=== PATIENT | female | born 1995 ===

== ENCOUNTER 2018-12-04 15:01 | Emergency (ER) | payer MEDICAID, OTHER ==
[2018-12-04 15:21] VITALS: RESP 18; TEMP 98
--- NOTE | 2018-12-04 15:38 | ED PDOC ---
Arrival/HPI - General Historian: Family - History of Present Illness Narrative History of Present Illness (Text): 12/04/18 15:35 Patient is a 23yo F with no PMH presenting to ED with seizure like activity and neurological deficits. Most of history was obtained from family members at bedside. They report patient complained of shaking and loss of sensation of hands and mouth this morning with an abrupt onset. They noticed the pt going cross eyed. They report prior history of this 2 weeks ago when she visited [facility] after having nightmares and similar symptoms and was discharged. She also complained of palpitations. She continues to complain of a heart squeezing sensation, numbness, and weakness. She denies any loss of consciousness. She is able to follow commands and answer questions at this time. She denies any recent stressful events, ingesting any drugs, or taking any medications today. She denies anxiety at this time. They report history of anxiety and seizure like activity in patient's father. They also report patient was recently "disowned" by family and moved in with aunt. <Cj Landis - Last Filed: 12/04/18 17:13> <Baldev Gibson - Last Filed: 12/04/18 18:45> - General Chief Complaint: Seizure Time Seen by Provider: 12/04/18 15:30 Family/Social History Family/Social History: Other Narrative Family History (Free Text): 12/04/18 15:41 father - seizures, anxiety <Cj Landis - Last Filed: 12/04/18 17:13> Allergies/Home Meds <Cj Landis - Last Filed: 12/04/18 17:13> <Baldev Gibson - Last Filed: 12/04/18 18:45> Allergies/Adverse Reactions: Allergies No Known Allergies Allergy (Verified 12/04/18 15:30) Review of Systems - Review of Systems Constitutional: absent: Fatigue, Fevers Eyes: Vision Changes Respiratory: absent: SOB Cardiovascular: Palpitations Gastrointestinal: absent: Abdominal Pain, Diarrhea, Nausea, Vomiting Genitourinary Female: absent: Dysuria Musculoskeletal: absent: Arthralgias Neurological: Focal Weakness, Seizure <Cj Landis - Last Filed: 12/04/18 17:13> Physical Exam Vital Signs Temp Pulse Resp BP Pulse Ox 12/04/18 15:20 98.0 F 118 H 18 135/84 100 - Systems Exam Head: Present: Atraumatic, Normocephalic Pupils: Present: PERRL Extroacular Muscles: Present: EOMI, Other (intentional intermittent eye adduction) Conjunctiva: Present: Normal Mouth: Present: Moist Mucous Membranes Neck: Present: Normal Range of Motion Respiratory/Chest: Present: Clear to Auscultation. No: Good Air Exchange, Respiratory Distress, Wheezes Cardiovascular: Present: Tachycardic Abdomen: Present: Normal Bowel Sounds. No: Tenderness, Distention Upper Extremity: Present: Normal Inspection, Normal ROM, Neurovascularly Intact, Norm 2-Pt Discrimination Lower Extremity: Present: Normal Inspection, Neurovascularly Intact Neurological: Present: GCS=15, CN II-XII Intact, Motor Func Grossly Intact, Normal Sensory Function, Normal 2Pt Descrimination Skin: Present: Normal Color Psychiatric: Present: Anxious, Agitated <Cj Landis - Last Filed: 12/04/18 17:13> Vital Signs Temp Pulse Resp BP Pulse Ox 12/04/18 15:20 98.0 F 118 H 18 135/84 100 <Baldev Gibson - Last Filed: 12/04/18 18:45> Medical Decision Making ED Course and Treatment: 12/04/18 17:04 Patient is no longer suffering from neurological symptoms and is feeling calmer. She is medically cleared for discharge. - Medication Orders Current Medication Orders: Alprazolam (Xanax) 0.5 mg PO STAT STA; Protocol Stop: 12/04/18 15:34 <Cj Landis - Last Filed: 12/04/18 17:13> ED Course and Treatment: 12/04/18 18:38 Patient evaluated by PES exhibitions and collections manager and deemed cleared for clearance from a psychiatric standpoint. She is stable for discharge. - Lab Interpretations Lab Results: Total Bilirubin 0.2 mg/dL (0.2-1.3) 12/04/18 16:05 AST 24 U/L (14-36) 12/04/18 16:05 ALT 21 U/L (7-56) 12/04/18 16:05 Alkaline Phosphatase 88 U/L (38-126) 12/04/18 16:05 Total Protein 7.9 g/dL (5.8-8.3) 12/04/18 16:05 Albumin 4.3 g/dL (3.0-4.8) 12/04/18 16:05 Globulin 3.6 gm/dL 12/04/18 16:05 Albumin/Globulin Ratio 1.2 (1.1-1.8) 12/04/18 16:05 Urine HCG, Qual Negative (NEGATIVE) 12/04/18 16:05 Urine HCG, Qual Negative (NEGATIVE) 12/04/18 16:05 - RAD Interpretation Radiology Orders: 12/04/18 15:51 CHEST TWO VIEWS (PA/LAT) [RAD] Stat - Medication Orders Current Medication Orders: Sodium Chloride (Sodium Chloride 0.9%) 1,000 mls @ 100 mls/hr IV .Q10H SUHA Last Admin: 12/04/18 16:15 Dose: 100 mls/hr eMAR Start Stop Document 12/04/18 16:15 GMD (Rec: 12/04/18 16:15 GMD [facility] [place]-[id number]) Intravenous Solution Start Date 12/04/18 Start Time 16:15 Discontinued Medications Alprazolam (Xanax) 0.5 mg PO STAT STA; Protocol Stop: 12/04/18 15:34 Last Admin: 12/04/18 16:15 Dose: 0.5 mg <BoskylieBaldev - Last Filed: 12/04/18 18:45> Disposition/Present on Arrival - Present on Arrival Any Indicators Present on Arrival: No - Disposition Have Diagnosis and Disposition been Completed?: Yes Disposition Time: 17:06 <Cj Landis - Last Filed: 12/04/18 17:13> - Present on Arrival Any Indicators Present on Arrival: No History of DVT/PE: No History of Uncontrolled Diabetes: No Urinary Catheter: No History of Decub. Ulcer: No - Disposition Have Diagnosis and Disposition been Completed?: Yes Patient Plan: Discharge <BosleonieemBaldev - Last Filed: 12/04/18 18:45> - Disposition Diagnosis: Anxiety, Conversion disorder Disposition: HOME/ ROUTINE Patient Problems: Current Active Problems Problem Status Onset Anxiety Acute Conversion disorder Acute Condition: IMPROVED Discharge Instructions (ExitCare): Conversion Disorder, Anxiety, Adult (DC) Print Language: GHANAIAN Additional Instructions: Please follow up with your primary care physician upon discharge. If you do not have a primary care physician, please make an appointment at the [facility] to establish care. It is recommended to utilize exercises to relieve stress, such as deep breathing and meditation. If symptoms worsen, return to the emergency department. Referrals: [facility] [Outside] - Follow up with primary Forms: [employer] (German), SCHOOL NOTE, WORK NOTE
[2018-12-04 15:44] VITALS: BMI 21.4
[2018-12-04] MEDS ORDERED: Sodium Chloride 0.9% 1,000 ML IV SCH (16:15)
[2018-12-04 16:20] LABS: BASO # 0.05 K/mm3 (0.0-2.0); BASO % 0.4 % (0.0-3.0); EOS # 0.4 (0.0-0.7); EOS % 3.8 % (1.5-5.0); HEMOGLOBIN 13.4 g/dL (12.0-16.0); LYMPH # 2.3 (1.2-3.4); LYMPH % 20.5 % (22.0-35.0); MEAN CELL VOLUME 83.3 fl (80.0-105.0); MEAN CORPUSCULAR HGB CONC 32.4 g/dl (31.0-37.0); MEAN PLATELET VOLUME 9.6 fl (7.0-11.0); MONO # 1.4 (0.1-0.6); MONO % 12.8 % (1.0-6.0); RBC 4.96 10^6/uL (3.5-6.1); RED CELL DISTRIBUTION WIDTH 13.6 % (11.5-14.5); WHITE BLOOD COUNT 11.2 10^3/uL (4.5-11.0)
[2018-12-04 16:29] LABS: ALB/GLOB RATIO 1.2 (1.1-1.8); ALBUMIN 4.3 g/dL (3.0-4.8); ALT/SGPT 21 U/L (7-56); AST/SGOT 24 U/L (14-36); BLOOD UREA NITROGEN 12 mg/dL (7-21); CALCIUM 9.1 mg/dL (8.4-10.5); GFR NON-AFRICAN AMERICAN > 60
[2018-12-04 16:46] LABS: FREE T4 1.13 ng/dL (0.78-2.19)
[2018-12-04] MEDS ORDERED: Iohexol 350 MG/100 ML VIAL ONE (17:36)
--- NOTE | 2018-12-04 17:54 | CARD ---
APPROVED REPORT Date of service: 12/04/2018 EKG Measurement Heart [id number] <Conclusion> Poor data quality, interpretation may be adversely affected Sinus tachycardia Otherwise normal ECG
[2018-12-04 17:59] LABS: BARBITURATES, UR NEGATIVE (NEGATIVE); BENZODIAZEPINES, UR NEGATIVE (NEGATIVE); OPIATES, UR NEGATIVE (NEGATIVE); PHENCYCLIDINE, UR NEGATIVE (NEGATIVE)
[2018-12-04 18:46] VITALS: BP 142/68; PULSE 102; O2SAT 98
== END 2018-12-04 18:49 | disposition home or self-care (01) ==
LOC: MERGE 15:01 → ED 15:01
DX: F41.9 Anxiety disorder, unspecified (principal); F44.9 Dissociative and conversion disorder, unspecified
CPT/HCPCS: 80053; 81025; 84439; 84443; 84703; 85025; 93005; 99285; G0480; J7030; Q9967

== ENCOUNTER 2018-12-11 11:10 | Emergency (ER) | payer MEDICAID, OTHER ==
[2018-12-11 11:11] VITALS: BMI 21.4
[2018-12-11 11:55] VITALS: TEMP 98.2
--- NOTE | 2018-12-11 12:23 | ED PDOC ---
Arrival/HPI - General Chief Complaint: Upper Extremity Problem/Injury Time Seen by Provider: 12/11/18 11:55 Historian: Patient - History of Present Illness Narrative History of Present Illness (Text): 12/11/18 12:20 23 year old F with no significant pmh presents with chief complaint of left upper arm that she noticed this morning. Patient denies any recent trauma or falls. Patient have no past medical history of bleeding disorders. Denies any other bruising. Patient denies any fevers, chills, headache, dizziness, chest pain, shortness of breath, dyspnea on exertion, cough, abdominal pain, nausea, vomiting, diarrhea, back pain, neck pain, or any other complaint. 12/11/18 14:55 Time/Duration: 1-3 hours Symptom Onset: Sudden Symptom Course: Unchanged Activities at Onset: Light Context: Home Past Medical History - Provider Review Nursing Documentation Reviewed: Yes - Infectious Disease Hx of Infectious Diseases: None - Cardiac Hx Cardiac Disorders: Yes Hx Hypertension: No Other/Comment: "irregular heart rhythm" - Pulmonary Hx Tuberculosis: No - Neurological HX Cerebrovascular Accident: No Hx Seizures: No - Hematological/Oncological Hx Cancer: No - Genitourinary/Gynecological Hx Sexually Transmitted Diseases: No - Psychiatric Hx Substance Use: No - Anesthesia Hx Anesthesia: No - Suicidal Assessment Feels Threatened In Home Enviroment: No Family/Social History - Physician Review Nursing Documentation Reviewed: Yes Family/Social History: Unknown Family HX Smoking Status: Never Smoked Hx Alcohol Use: No Hx Substance Use: No Allergies/Home Meds Allergies/Adverse Reactions: Allergies No Known Allergies Allergy (Verified 12/06/18 14:32) Review of Systems - Review of Systems Constitutional: absent: Fevers Respiratory: absent: SOB, Cough Cardiovascular: absent: Chest Pain Gastrointestinal: absent: Abdominal Pain, Diarrhea, Nausea, Vomiting Musculoskeletal: Arthralgias (left upper arm). absent: Joint Swelling Neurological: absent: Headache, Dizziness Hemo/Lymphatic: absent: Easy Bleeding, Easy Bruising Physical Exam Vital Signs Reviewed: Yes Vital Signs Temp Pulse Resp BP Pulse Ox 12/11/18 11:50 98.2 F 93 H 17 107/72 97 Temperature: Afebrile Blood Pressure: Normal Pulse: Regular Respiratory Rate: Normal Appearance: Positive for: Well-Appearing, Non-Toxic, Comfortable Pain Distress: None Mental Status: Positive for: Alert and Oriented X 3 - Systems Exam Head: Present: Atraumatic, Normocephalic Pupils: Present: PERRL Extroacular Muscles: Present: EOMI Conjunctiva: Present: Normal Mouth: Present: Moist Mucous Membranes Neck: Present: Normal Range of Motion Respiratory/Chest: Present: Clear to Auscultation, Good Air Exchange. No: Respiratory Distress, Accessory Muscle Use Cardiovascular: Present: Regular Rate and Rhythm, Normal S1, S2. No: Murmurs Abdomen: No: Tenderness, Distention, Peritoneal Signs Back: Present: Normal Inspection Upper Extremity: Present: Normal ROM, NORMAL PULSES, Tenderness (left upper arm), Capillary Refill < 2s, Other (3 in linear bruising to anterior left upper arm). No: Cyanosis, Edema Lower Extremity: Present: Normal Inspection. No: Edema Neurological: Present: GCS=15, CN II-XII Intact, Speech Normal Skin: Present: Warm, Dry, Normal Color. No: Rashes Psychiatric: Present: Alert, Oriented x 3, Normal Insight, Normal Concentration Medical Decision Making ED Course and Treatment: 12/11/18 12:20 Impression: 23 year old F presents with chief complaint of left upper arm bruising since this morning. Patient denies any recent trauma or falls. Patient have no past medical history of bleeding disorders. No bruising anywhere else on patient's body Plan: -- X Ray Left humerus -- Reassess and disposition Prior Visits: Notes and results from previous visits were reviewed. Patient was last seen in the emergency department on Progress Notes: 12/11/18 14:05 Hymerus X Ray -- Normal radiographs of left humerus Patient aware of need to follow-up with PMD for further evaluation of bruising - RAD Interpretation Radiology Orders: 12/11/18 12:05 HUMERUS LEFT [RAD] Stat - Scribe Statement The provider has reviewed the documentation as recorded by the Gayathri Lazcano All medical record entries made by the Scribe were at my direction and personally dictated by me. I have reviewed the chart and agree that the record accurately reflects my personal performance of the history, physical exam, medical decision making, and the department course for this patient. I have also personally directed, reviewed, and agree with the discharge instructions and disposition. Disposition/Present on Arrival - Present on Arrival Any Indicators Present on Arrival: No History of DVT/PE: No History of Uncontrolled Diabetes: No Urinary Catheter: No History of Decub. Ulcer: No History Surgical Site Infection Following: None - Disposition Have Diagnosis and Disposition been Completed?: Yes Diagnosis: Arm bruise Disposition: HOME/ ROUTINE Disposition Time: 14:05 Patient Plan: Discharge Patient Problems: Current Active Problems Problem Status Onset Arm bruise Acute Condition: GOOD Discharge Instructions (ExitCare): Contusion (DC) Additional Instructions: Follow-up with PMD within 2 days. Return to ED if condition worsens. Tylenol for pain. Forms: [employer] (Maltese)
[2018-12-11 13:09] VITALS: BP 105/72; PULSE 89; RESP 18; O2SAT 100
--- NOTE | 2018-12-11 14:19 | RAD ---
PROCEDURE: Radiographs of the left humerus. HISTORY: bruising to L upper arm COMPARISON: None. TECHNIQUE: 2 views obtained. FINDINGS: BONES: Normal. No fracture or focal lesion. SOFT TISSUES: Normal. OTHER FINDINGS: None. IMPRESSION: Normal radiographs of left humerus.
== END 2018-12-11 14:10 | disposition home or self-care (01) ==
LOC: ED 11:10
DX: S40.022A Contusion of left upper arm, initial encounter (principal); X58.XXXA Exposure to other specified factors, initial encounter

== ENCOUNTER 2019-01-02 13:50 | Emergency (ER) | payer MEDICAID ==
[2019-01-02 14:11] VITALS: RESP 18; TEMP 97.8
--- NOTE | 2019-01-02 14:14 | ED PDOC ---
Arrival/HPI <Baldev Gibson - Last Filed: 01/02/19 15:10> - General Historian: Patient - History of Present Illness Narrative History of Present Illness (Text): 01/02/19 14:30 Patient is a 23 yo who denies PMH who presents with bloody vomiting. Patient states that 2 days ago, she was sitting at home when all of a sudden she vomited dark red blood. She states that this has happened a total of 6 times, with the most recent being this morning. She says she has been able to eat soup and drink sherwin eric for the last 2 days. She denies any sick contacts. She also endorses blood in her urine. She denies dysuria. She reports her last menses was "last month" and it is regular. She denies alcohol and drug use. She denies fevers, chills, chest pain, palpitations, abdominal pain, diarrhea. She denies having a PMD. Of note, patient has been to all 3 [facility] EDs in the past with similar complaints. Her most recent visit, she was diagnosed with anxiety and conversion disorder. 01/02/19 14:35 Time/Duration: < week Symptom Onset: Sudden Symptom Course: Unchanged Activities at Onset: Rest <Cris Santo - Last Filed: 01/02/19 15:46> - General Chief Complaint: GI Problem Time Seen by Provider: 01/02/19 14:14 Past Medical History - Infectious Disease Hx of Infectious Diseases: None - Tetanus Immunization Tetanus Immunization: Unknown - Reproductive Menopause: No - Cardiac Hx Cardiac Disorders: Yes Hx Hypertension: No Other/Comment: "irregular heart rhythm" - Pulmonary Hx Tuberculosis: No - Neurological HX Cerebrovascular Accident: No Hx Seizures: No - Hematological/Oncological Hx Cancer: No - Genitourinary/Gynecological Hx Sexually Transmitted Diseases: No - Psychiatric Hx Substance Use: No - Anesthesia Hx Anesthesia: No - Suicidal Assessment Feels Threatened In Home Enviroment: No <Cris Santo - Last Filed: 01/02/19 15:46> Family/Social History Family/Social History: Unknown Family HX Narrative Family History (Free Text): 01/02/19 14:34 lives with cousin Smoking Status: Never Smoked Hx Alcohol Use: No Hx Substance Use: No <Cris Santo - Last Filed: 01/02/19 15:46> Allergies/Home Meds <Baldev Gibson - Last Filed: 01/02/19 15:10> <Cris Santo - Last Filed: 01/02/19 15:46> Allergies/Adverse Reactions: Allergies No Known Allergies Allergy (Verified 12/06/18 14:32) Review of Systems - Review of Systems Constitutional: absent: Weight Change, Fevers Respiratory: absent: SOB, Cough Cardiovascular: absent: Chest Pain, Palpitations Gastrointestinal: Vomiting, Hematemesis. absent: Abdominal Pain, Constipation, Diarrhea, Nausea, Hematochezia Genitourinary Female: Hematuria. absent: Dysuria Musculoskeletal: absent: Arthralgias, Myalgias Skin: absent: Rash, Pruritis, Skin Lesions Neurological: absent: Headache, Dizziness Endocrine: absent: Diaphoresis, Polyuria Hemo/Lymphatic: absent: Adenopathy <Cris Santo - Last Filed: 01/02/19 15:46> Physical Exam Vital Signs Temp Pulse Resp BP Pulse Ox 01/02/19 14:06 97.8 F 89 18 119/68 99 <Baldev Gibson - Last Filed: 01/02/19 15:10> Vital Signs Reviewed: Yes Vital Signs Temp Pulse Resp BP Pulse Ox 01/02/19 14:06 97.8 F 89 18 119/68 99 Temperature: Afebrile Blood Pressure: Normal Pulse: Regular Respiratory Rate: Normal Appearance: Positive for: Well-Appearing, Non-Toxic, Comfortable Pain Distress: None Mental Status: Positive for: Alert and Oriented X 3 - Systems Exam Head: Present: Atraumatic, Normocephalic Pupils: Present: PERRL Extroacular Muscles: Present: EOMI Conjunctiva: Present: Normal Mouth: Present: Moist Mucous Membranes Neck: No: Lymphadenopathy Respiratory/Chest: Present: Clear to Auscultation, Good Air Exchange. No: Respiratory Distress, Accessory Muscle Use Cardiovascular: Present: Regular Rate and Rhythm, Normal S1, S2 Abdomen: Present: Normal Bowel Sounds. No: Tenderness, Distention Neurological: Present: GCS=15, CN II-XII Intact, Speech Normal Skin: Present: Warm, Dry, Normal Color Lymphatic: No: Cervical Adenopathy Psychiatric: Present: Alert, Oriented x 3, Normal Insight, Normal Concentration. No: Anxious <AlexCris mendes - Last Filed: 01/02/19 15:46> Medical Decision Making ED Course and Treatment: 01/02/19 15:10 Patient Seen with Resident: In agreement with resident note which contains more details about the patient. Patient seen and evaluated with resident. Came up with plan and treatment together. <Baldev Gibson - Last Filed: 01/02/19 15:10> Re-evaluation Time: 15:35 Reassessment Condition: Re-examined, Unchanged (asymptomatic, no vomiting) <Cris Santo - Last Filed: 01/02/19 15:46> Disposition/Present on Arrival <Baldev Gibson - Last Filed: 01/02/19 15:10> - Present on Arrival Any Indicators Present on Arrival: No History of DVT/PE: No History of Uncontrolled Diabetes: No Urinary Catheter: No History of Decub. Ulcer: No History Surgical Site Infection Following: None - Disposition Have Diagnosis and Disposition been Completed?: Yes Disposition Time: 15:44 Patient Plan: Discharge <Cris Santo - Last Filed: 01/02/19 15:46> - Disposition Diagnosis: Hematemesis without nausea Disposition: HOME/ ROUTINE Condition: GOOD Print Language: STATELESS Additional Instructions: Establish care with the [facility] within 1 week. They can serve as your primary care provider. Referrals: [facility] at [facility] [Outside] - Follow up with primary Forms: [employer] (Guatemalan)
[2019-01-02 14:39] VITALS: BMI 28.3
[2019-01-02 15:19] LABS: BASO # 0.04 K/mm3 (0.0-2.0); BASO % 0.5 % (0.0-3.0); EOS # 0.3 (0.0-0.7); EOS % 3.4 % (1.5-5.0); HEMOGLOBIN 13.7 g/dL (12.0-16.0); LYMPH # 2.3 (1.2-3.4); LYMPH % 25.9 % (22.0-35.0); MEAN CELL VOLUME 82.7 fl (80.0-105.0); MEAN CORPUSCULAR HEMOGLOBIN 26.9 pg (25.0-35.0); MEAN CORPUSCULAR HGB CONC 32.5 g/dl (31.0-37.0); MEAN PLATELET VOLUME 9.6 fl (7.0-11.0); MONO # 1.1 (0.1-0.6); MONO % 12.2 % (1.0-6.0); RBC 5.09 10^6/uL (3.5-6.1); RED CELL DISTRIBUTION WIDTH 13.1 % (11.5-14.5); WHITE BLOOD COUNT 8.8 10^3/uL (4.5-11.0)
[2019-01-02 15:20] LABS: URINE BILIRUBIN NEGATIVE (NEGATIVE); URINE BLOOD NEGATIVE (NEGATIVE); URINE GLUCOSE (UA) NEGATIVE (NEGATIVE); URINE LEUKOCYTE ESTERASE MODERATE Leu/uL (NEGATIVE); URINE PROTEIN NEGATIVE mg/dL (<30 mg/dL); URINE UROBILINOGEN 0.2 E.U./dL (<1 E.U./dL)
[2019-01-02 15:21] LABS: URINE APPEARANCE CLEAR (CLEAR); URINE COLOR YELLOW (YELLOW)
[2019-01-02 15:31] LABS: ALB/GLOB RATIO 1.1 (1.1-1.8); ALBUMIN 4.1 g/dL (3.0-4.8); ALT/SGPT 17 U/L (7-56); AST/SGOT 22 U/L (14-36); BLOOD UREA NITROGEN 11 mg/dL (7-21); CALCIUM 9.3 mg/dL (8.4-10.5); GFR NON-AFRICAN AMERICAN > 60
[2019-01-02 15:43] LABS: URINE EPITHELIAL CELLS MANY /hpf (0-5)
[2019-01-02 16:37] VITALS: BP 118/72; PULSE 86; O2SAT 100
== END 2019-01-02 16:20 | disposition home or self-care (01) ==
LOC: ED 13:50
DX: K92.0 Hematemesis (principal)